=== PATIENT | female | born 2000 | race Caucasian/White ===

== ENCOUNTER 2021-10-20 20:33 | Emergency (ER) | payer OTHER ==
[~2021-10-20] VITALS: Ht 152.4 cm; Wt 70.5 kg
[2021-10-20 20:43] VITALS: BP 141/80
[2021-10-20 21:12] LABS: COVID AG,FIA SOURCE NASAL SWAB
[2021-10-20 21:31] LABS: INFLUENZA TYPE A NEGATIVE FOR TYPE A (NEGATIVE); INFLUENZA TYPE B NEGATIVE FOR TYPE B (NEGATIVE)
[2021-10-20] MEDS ORDERED: BENZ1LOZ50 PO (22:14)
[2021-10-20] MEDS ORDERED: BENZ-70 PO (22:14)
[2021-10-20] MEDS ORDERED: ACET-66 PO (22:14)
== END 2021-10-20 22:20 | disposition home or self-care (01) ==
LOC: EMS 20:37
DX: U07.1 COVID-19 (principal)
CPT/HCPCS: 87426; 87804; 99283; C9803; U0003

== ENCOUNTER 2021-12-07 19:24 | Emergency (ER) | payer OTHER ==
[~2021-12-07] VITALS: Ht 154.9 cm; Wt 56.8 kg
[~2021-12-07 19:24] MED LIST: ACET-66 PO; BENZ-70 PO; BENZ1LOZ50 PO
[2021-12-07 20:25] LABS: BASOPHILS % (AUTO) 0.6 % (0.0-2.0); EOSINOPHILS % (AUTO) 1.9 % (1.0-6.0); HEMATOCRIT 37.9 % (36-46); HEMOGLOBIN 12.7 g/dL (12.0-16.0); LYMPHOCYTES # (AUTO) 2.7 K/uL (1.0-4.8); LYMPHOCYTES % (AUTO) 27.6 % (22.0-44.0); MEAN CORPUSCULAR HEMOGLOBIN 28.5 pg (26.0-34.0); MEAN CORPUSCULAR HGB CONC 33.6 G/dL (31.0-37.0); MEAN CORPUSCULAR VOLUME 85 fL (80-100); MONOCYTES # (AUTO) 0.8 K/uL (0.1-1.0); MONOCYTES % (AUTO) 8.4 % (2.0-9.0); NEUTROPHILS # (AUTO) 5.9 K/uL (1.8-7.7); NEUTROPHILS % (AUTO) 61.5 % (40.0-70.0); PLATELET COUNT (AUTO) 271 K/uL (150-450); RED BLOOD CELL COUNT(AUTO) 4.47 MIL/uL (4.00-5.20); RED CELL DISTRIBUTION WIDTH 13.6 % (11.5-14.5)
[2021-12-07 20:33] LABS: ANION GAP 13 mmol/L (8-16); APPEARANCE,URINE HAZY (CLEAR); BILIRUBIN,URINE NEGATIVE (NEGATIVE); CALCIUM, TOTAL 8.9 mg/dL (8.8-10.5); CARBON DIOXIDE 24 mmol/L (22-29); CHLORIDE 103 mmol/L (98-107); CREATININE 0.66 mg/dL (0.60-1.30); GLOMERULAR FILTR. RATE CALC > 60 mL/min (>60); GLUCOSE, URINE (UA) NEGATIVE (NEGATIVE); GLUCOSE,RANDOM 79 mg/dL (70-110); KETONES,URINE NEGATIVE (NEGATIVE); LEUKOCYTE ESTERASE ,URINE MODERATE (NEGATIVE); NITRATE,URINE NEGATIVE (NEGATIVE); OCCULT BLOOD,URINE NEGATIVE (NEGATIVE); POTASSIUM 3.7 mmol/L (3.5-5.1); PROTEIN,URINE NEGATIVE (NEGATIVE); SODIUM SERUM 140 mmol/L (136-145); SPECIFIC GRAVITIY, URINE 1.013 (1.003-1.030); UREA NITROGEN, BLOOD 5 mg/dL (7-18); UROBILINOGEN,URINE <=1.0 mg/dL (<=1.0)
[2021-12-07 20:44] LABS: ALANINE AMINOTRANSFERASE 21 U/L (12-78); ALBUMIN 3.9 g/dL (3.4-5.0); ALKALINE PHOSPHATASE 70 U/L (46-116); ASPARTATE AMINOTRANSFERASE 13 U/L (15-37); BILIRUBIN,TOTAL 0.2 mg/dL (0.1-1.0); HCG,QUANTITATIVE < 1 mIU/mL (0-6); LIPASE 105 U/L (73-393); TOTAL PROTEIN, SERUM 7.4 g/dL (6.4-8.2)
[2021-12-07 20:46] LABS: BACTERIA,URINE Few /HPF (None Seen); RBC,URINE 0-2 /HPF (0-2); SQUAMOUS EPITHELIAL CELL,UR Moderate /LPF (None Seen)
[2021-12-07 20:57] VITALS: BP 136/81
[2021-12-07] MEDS ORDERED: NITR-75 PO (20:58)
[2021-12-07] MEDS ORDERED: PHEN-1103 PO (20:58)
== END 2021-12-07 23:45 | disposition home or self-care (01) ==
LOC: EMS 19:28
DX: N39.0 Urinary tract infection, site not specified (principal)
CPT/HCPCS: 80053; 81001; 83690; 84702; 85025; 87086; 99283

== ENCOUNTER 2022-03-02 18:34 | Emergency (ER) | payer MEDICAID, OTHER ==
[~2022-03-02] VITALS: Ht 154.9 cm; Wt 74.5 kg
[~2022-03-02 18:34] MED LIST changes: -ACET-66 PO; -BENZ-70 PO; -BENZ1LOZ50 PO; +CLINDA PO; +PREDNISONE PO
[2022-03-02 19:43] LABS: COVID AG,FIA SOURCE NASAL SWAB
[2022-03-02] MEDS ORDERED: IBUPROFEN 600 MG TABLET PO ONE (20:00)
[2022-03-02 20:09] LABS: INFLUENZA TYPE A NEGATIVE FOR TYPE A (NEGATIVE); INFLUENZA TYPE B NEGATIVE FOR TYPE B (NEGATIVE)
[2022-03-02] MEDS ORDERED: BENZ1LOZ77 PO (20:24)
[2022-03-02] MEDS ORDERED: BENZ-70 PO (20:24)
[2022-03-02 20:45] VITALS: BP 119/75
== END 2022-03-02 20:52 | disposition home or self-care (01) ==
LOC: EMS 18:36
DX: B34.9 Viral infection, unspecified (principal); Z88.1 Allergy status to other antibiotic agents; Z20.822 Contact with and (suspected) exposure to COVID-19
CPT/HCPCS: 87430; 87804; 99283

== ENCOUNTER 2022-04-11 16:33 | Emergency (ER) | payer MEDICAID, OTHER ==
[~2022-04-11] VITALS: Ht 154.9 cm; Wt 72.7 kg
[~2022-04-11 16:33] MED LIST changes: +BENZ-70 PO; +BENZ1LOZ77 PO
[2022-04-11 17:11] VITALS: BP 129/76
[2022-04-11 17:50] LABS: COVID AG,FIA SOURCE NASOPHARYNGEAL
[2022-04-11 18:15] LABS: INFLUENZA TYPE A NEGATIVE FOR TYPE A (NEGATIVE); INFLUENZA TYPE B NEGATIVE FOR TYPE B (NEGATIVE)
[2022-04-11] MEDS ORDERED: BENZ-70 PO (18:32)
[2022-04-11] MEDS ORDERED: IBUP-2070 PO (18:32)
== END 2022-04-11 19:16 | disposition still patient (30) ==
LOC: EMS 16:33
DX: B34.9 Viral infection, unspecified (principal); Z88.8 Allergy status to other drugs, medicaments and biological substances; Z20.822 Contact with and (suspected) exposure to COVID-19
CPT/HCPCS: 87804; 99283

== ENCOUNTER 2022-09-02 12:51 | Emergency (ER) | payer OTHER ==
[~2022-09-02] VITALS: Ht 162.6 cm; Wt 74.5 kg
[~2022-09-02 12:51] MED LIST changes: +BENZ-227 PO; -BENZ-70 PO; +IBUP-1492 PO
[2022-09-02] MEDS ORDERED: IBUPROFEN 600 MG TABLET PO ONE (13:30)
[2022-09-02] MEDS ORDERED: DEXAMETHASONE SOD PHOS 4 MG/ML 5 ML VIAL IM ONE (13:30)
[2022-09-02 14:00] VITALS: BP 119/76
[2022-09-02] MEDS ORDERED: IBUP-1492 PO (14:13)
== END 2022-09-02 14:42 | disposition home or self-care (01) ==
LOC: EMS 12:55
DX: J02.8 Acute pharyngitis due to other specified organisms (principal); Z88.4 Allergy status to anesthetic agent
CPT/HCPCS: 99283; 87430; 96372; J1100

== ENCOUNTER 2022-11-09 19:54 | Emergency (ER) | payer OTHER ==
[~2022-11-09] VITALS: Ht 152.4 cm; Wt 75.0 kg
[~2022-11-09 19:54] MED LIST changes: -BENZ-227 PO; -BENZ1LOZ77 PO; -CLINDA PO; -PREDNISONE PO
[2022-11-09] MEDS ORDERED: DEXAMETHASONE SOD PHOS 4 MG/ML 5 ML VIAL IM ONE (20:30)
[2022-11-09] MEDS ORDERED: ACETAMINOPHEN 500 MG TABLET PO ONE (21:30)
[2022-11-09] MEDS ORDERED: IBUPROFEN 600 MG TABLET PO ONE (21:30)
[2022-11-09 23:00] VITALS: BP 120/68; PULSE 75; RESP 16; TEMP 101.5
== END 2022-11-09 23:30 | disposition home or self-care (01) ==
LOC: EMS 19:54
DX: J02.8 Acute pharyngitis due to other specified organisms (principal); Z88.4 Allergy status to anesthetic agent
CPT/HCPCS: 99283; 87430; 96372; J1100

== ENCOUNTER 2023-08-18 19:26 | Emergency (ER) | payer OTHER ==
[~2023-08-18] VITALS: Ht 152.4 cm; Wt 72.7 kg
[~2023-08-18 19:26] MED LIST changes: +HYDR-4527 PO
[2023-08-18 19:33] VITALS: TEMP 98.2
[2023-08-18 20:13] LABS: COVID AG,FIA SOURCE NASAL SWAB; SARS-COV2 (COVID) ANTIGEN,FIA Negative (Negative)
[2023-08-18 20:15] LABS: INFLUENZA TYPE A NEGATIVE FOR TYPE A (NEGATIVE); INFLUENZA TYPE B NEGATIVE FOR TYPE B (NEGATIVE)
[2023-08-18] MEDS: ACETAMINOPHEN 500 MG TABLET PO ONE (22:45)
[2023-08-18] MEDS ORDERED: AZIT-104 PO (23:04)
[2023-08-18] MEDS ORDERED: IBUP-1492 PO (23:04)
[2023-08-18] MEDS ORDERED: ACET-3385 PO (23:04)
[2023-08-18 23:25] VITALS: BP 135/89; PULSE 75; RESP 18
== END 2023-08-18 23:29 | disposition home or self-care (01) ==
LOC: EMS 19:27
DX: J03.90 Acute tonsillitis, unspecified (principal); Z20.822 Contact with and (suspected) exposure to COVID-19
CPT/HCPCS: 87430; 87804; 99283

== ENCOUNTER 2023-09-20 21:21 | Emergency (ER) | payer OTHER ==
[~2023-09-20] VITALS: Ht 154.9 cm; Wt 74.5 kg
[~2023-09-20 21:21] MED LIST changes: +ACET-3385 PO; +AZIT-104 PO
[2023-09-20 21:48] VITALS: BP 121/73; PULSE 74; RESP 18; TEMP 97.6
[2023-09-20] MEDS ORDERED: PRED-554 PO (23:14)
== END 2023-09-20 23:38 | disposition home or self-care (01) ==
LOC: EMS 21:22
DX: T78.40XA Allergy, unspecified, initial encounter (principal); X58.XXXA Exposure to other specified factors, initial encounter
CPT/HCPCS: 99283; Z7502

== ENCOUNTER 2023-11-02 12:58 | Emergency (ER) | payer OTHER ==
[~2023-11-02] VITALS: Ht 167.6 cm; Wt 77.3 kg
[~2023-11-02 12:58] MED LIST changes: -AZIT-104 PO; +AZIT-167 PO; +PRED-554 PO
[2023-11-02 13:37] LABS: COVID AG,FIA SOURCE NASAL SWAB
[2023-11-02 14:13] LABS: RAPID GROUP A STREP POSITIVE (NEGATIVE)
[2023-11-02 14:16] LABS: SARS-COV2 (COVID) ANTIGEN,FIA Negative (Negative)
[2023-11-02 14:17] LABS: INFLUENZA TYPE A NEGATIVE FOR TYPE A (NEGATIVE); INFLUENZA TYPE B NEGATIVE FOR TYPE B (NEGATIVE)
[2023-11-02] MEDS: DEXAMETHASONE 4 MG TABLET PO ONE (14:56)
[2023-11-02] MEDS ORDERED: AZIT250T9 PO (15:19)
[2023-11-02] MEDS: SODIUM CHLORIDE 0.9% 1,000 ML IV ONE (15:42)
[2023-11-02] MEDS: ACETAMINOPHEN 500 MG TABLET PO ONE (15:43)
[2023-11-02 16:07] LABS: BASOPHILS % (AUTO) 0.4 % (0.0-2.0); EOSINOPHILS % (AUTO) 0.1 % (1.0-6.0); HEMOGLOBIN 12.9 g/dL (12.0-16.0); LYMPHOCYTES # (AUTO) 0.3 K/uL (1.0-4.8); LYMPHOCYTES % (AUTO) 1.3 % (22.0-44.0); MEAN CORPUSCULAR HEMOGLOBIN 28.2 pg (26.0-34.0); MEAN CORPUSCULAR HGB CONC 32.2 G/dL (31.0-37.0); MEAN CORPUSCULAR VOLUME 87 fL (80-100); MONOCYTES # (AUTO) 1.1 K/uL (0.1-1.0); MONOCYTES % (AUTO) 4.1 % (2.0-9.0); NEUTROPHILS # (AUTO) 24.6 K/uL (1.8-7.7); PLATELET COUNT (AUTO) 323 K/uL (150-450); RED BLOOD CELL COUNT(AUTO) 4.58 MIL/uL (4.00-5.20); RED CELL DISTRIBUTION WIDTH 14.4 % (11.5-14.5); WHITE BLOOD COUNT (AUTO) 26.1 K/uL (4.5-11.0)
[2023-11-02 16:14] LABS: NEUTROPHILS % (AUTO) 94.1 % (40.0-70.0)
[2023-11-02 16:26] LABS: ANION GAP 14 mmol/L (8-16); CALCIUM, TOTAL 9.1 mg/dL (8.8-10.5); CARBON DIOXIDE 23 mmol/L (22-29); CHLORIDE 98 mmol/L (98-107); CREATININE 0.82 mg/dL (0.60-1.30); GLOMERULAR FILTR. RATE CALC > 60 mL/min (>60); GLUCOSE,RANDOM 103 mg/dL (70-110); POTASSIUM 3.7 mmol/L (3.5-5.1); SODIUM SERUM 134 mmol/L (136-145); UREA NITROGEN, BLOOD 6 mg/dL (7-18)
[2023-11-02 16:54] VITALS: BP 123/86; PULSE 110; RESP 18; TEMP 100.1
[2023-11-02 17:07] LABS: APPEARANCE,URINE HAZY (CLEAR); BILIRUBIN,URINE NEGATIVE (NEGATIVE); COLOR,URINE LIGHT YELLOW (YELLOW); GLUCOSE, URINE (UA) NEGATIVE (NEGATIVE); LEUKOCYTE ESTERASE ,URINE LARGE (NEGATIVE); NITRATE,URINE NEGATIVE (NEGATIVE); OCCULT BLOOD,URINE TRACE (NEGATIVE); PH,URINE 5.5 (5.0-8.0); PROTEIN,URINE NEGATIVE (NEGATIVE); SPECIFIC GRAVITIY, URINE 1.016 (1.003-1.030); UROBILINOGEN,URINE <=1.0 mg/dL (<=1.0)
[2023-11-02 17:15] LABS: SQUAMOUS EPITHELIAL CELL,UR Many /LPF (None Seen)
[2023-11-02 17:16] LABS: BACTERIA,URINE Few /HPF (None Seen); RBC,URINE None Seen /HPF (0-2)
== END 2023-11-02 18:52 | disposition home or self-care (01) ==
LOC: EMS 12:58
DX: J02.0 Streptococcal pharyngitis (principal); M79.10 Myalgia, unspecified site; R50.9 Fever, unspecified; Z88.1 Allergy status to other antibiotic agents; Z20.822 Contact with and (suspected) exposure to COVID-19
CPT/HCPCS: 99283; 96360; 87426; 80048; 81001; 84702; 85025; 87430; 87804; 36415; 87086; 87186; J8540; J7030

== ENCOUNTER 2024-01-04 20:09 | Emergency (ER) | payer OTHER ==
[~2024-01-04] VITALS: Ht 152.4 cm; Wt 72.7 kg
[2024-01-04 20:15] VITALS: TEMP 98.3
[2024-01-04] MEDS ORDERED: NAPR220T57 PO (20:20)
[2024-01-04 20:25] LABS: COVID AG,FIA SOURCE NASAL SWAB
[2024-01-04 20:45] LABS: SARS-COV2 (COVID) ANTIGEN,FIA Negative (Negative)
[2024-01-04 20:46] LABS: INFLUENZA TYPE A NEGATIVE FOR TYPE A (NEGATIVE); INFLUENZA TYPE B NEGATIVE FOR TYPE B (NEGATIVE)
[2024-01-04 21:55] VITALS: BP 130/88; PULSE 85; RESP 16; O2SAT 100
[2024-01-04] MEDS: DEXAMETHASONE 4 MG TABLET PO ONE (22:02)
== END 2024-01-04 22:08 | disposition home or self-care (01) ==
LOC: EMS 20:09
DX: J02.9 Acute pharyngitis, unspecified (principal); Z88.8 Allergy status to other drugs, medicaments and biological substances; Z20.822 Contact with and (suspected) exposure to COVID-19
CPT/HCPCS: 99283; 87426; 87804; 81025; J8540